=== PATIENT | female | born 1965 | race African-American/Black ===

== ENCOUNTER 2016-05-25 21:56 | Emergency (ER) | payer SELFPAY ==
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
[2016-05-25 22:16] VITALS: BP 151/98; PULSE 66; TEMP 997.9; BMI 29.1
== END 2016-05-25 22:48 | disposition home or self-care (01) ==
LOC: FER 21:56
DX: S16.1XXA Strain of muscle, fascia and tendon at neck level, initial encounter (principal); V49.40XA Driver injured in collision with unspecified motor vehicles in traffic accident, initial encounter; Y93.89 Activity, other specified; Y92.410 Unspecified street and highway as the place of occurrence of the external cause; I10 Essential (primary) hypertension
CPT/HCPCS: 99282-25

== ENCOUNTER 2017-12-30 17:10 | Emergency (ER) | payer BC ==
[2017-12-30 18:25] VITALS: BP 150/92; PULSE 87; TEMP 98.4; BMI 29.4
--- NOTE | 2017-12-30 19:19 | PDOC ---
History of Present Illness - General History Source: Patient Exam Limitations: No Limitations - History of Present Illness Initial Comments: 12/30/17 19:43 The patient is a 52 year old male with a past medical history of GOUT, hypertension, and asthma who presents to the emergency department for evaluation of left foot pain. The patient reports moderate left toe pain with associated redness since this morning. He reports waking up this morning with a soreness on the medial side of his left foot. Patient reports a history of gout , but notes it usually affects the entire left foot. The patient denies changes in diet, chest pain, shortness of breath, headache dizziness, f/c, nausea, vomiting, and any bowel/urinary symptoms. Allergies: Ibuprofen, NSAIDS Social History: No reported alcohol, cigarette, or drug use. Surgical History: Gastric sleeve. <Jayce Briscoe - Last Filed: 12/30/17 19:43> <Paulina Barragan - Last Filed: 12/31/17 00:58> - General Chief Complaint: Pain Stated Complaint: LEFT FOOT PAIN Time Seen by Provider: 12/30/17 19:18 Past History <Jayce Briscoe - Last Filed: 12/30/17 19:43> - Past Medical History Asthma: Yes COPD: No Diabetes: Yes HTN: Yes Other medical history: GOUT - Surgical History GI Surgery: Yes (SLEEVE) - Suicide/Smoking/Psychosocial Hx Smoking History: Never smoked Have you smoked in the past 12 months: No Hx Alcohol Use: No Drug/Substance Use Hx: No Substance Use Type: None <Paulina Barragan - Last Filed: 12/31/17 00:58> - Past Medical History Allergies/Adverse Reactions: Allergies Allergy/AdvReac Type Severity Reaction Status Date / Time ibuprofen [From Advil] Allergy Severe Swelling Verified 12/30/17 18:25 NSAIDS (Non-Steroidal Allergy Severe Swelling Verified 12/30/17 18:25 Anti-Inflamma Home Medications: Ambulatory Orders Allopurinol [Zyloprim -] 100 mg PO DAILY #30 tablet 12/30/17 Carvedilol [Coreg -] mg PO BID 12/30/17 Colchicine [Colcrys -] 0.6 mg PO DAILY #30 tablet 12/30/17 Hydralazine HCl 100 mg PO TID 12/30/17 Hydrochlorothiazide [Hctz -] 25 mg PO TID 12/30/17 Losartan Potassium [Cozaar -] 25 mg PO DAILY 12/30/17 Montelukast Sodium [Singulair] 10 mg PO HS 12/30/17 Review of Systems - Review of Systems Able to Perform ROS?: Yes Comments:: GENERAL/CONSTITUTIONAL: No fever or chills. No weakness. HEAD, EYES, EARS, NOSE AND THROAT: No change in vision. No ear pain or discharge. No sore throat. CARDIOVASCULAR: No chest pain or shortness of breath. RESPIRATORY: No cough, wheezing, or hemoptysis. GASTROINTESTINAL: No nausea, vomiting, diarrhea or constipation. GENITOURINARY: No dysuria, frequency, or change in urination. MUSCULOSKELETAL: (+)Left toe pain. (+)Left toe redness. No joint or muscle swelling or pain. No neck or back pain. SKIN: No rash NEUROLOGIC: No headache, vertigo, loss of consciousness, or change in strength/ sensation. ENDOCRINE: No increased thirst. No abnormal weight change. HEMATOLOGIC/LYMPHATIC: No anemia, easy bleeding, or history of blood clots. ALLERGIC/IMMUNOLOGIC: No hives or skin allergy. <RachnaJayce - Last Filed: 12/30/17 19:43> *Physical Exam - Vital Signs Last Vital Signs Temp Pulse Resp BP Pulse Ox 98.4 F 87 18 150/92 96 12/30/17 18:23 12/30/17 18:23 12/30/17 18:23 12/30/17 18:23 12/30/17 18:23 - Physical Exam Comments: GENERAL: Awake, alert, and fully oriented, in no acute distress HEAD: No signs of trauma EYES: PERRLA, EOMI, sclera anicteric, conjunctiva clear ENT: Auricles normal inspection, hearing grossly normal, nares patent, oropharynx clear without exudates. Moist mucosa NECK: Normal ROM, supple, no lymphadenopathy, JVD, or masses LUNGS: Breath sounds equal, clear to auscultation bilaterally. No wheezes, and no crackles HEART: Regular rate and rhythm, normal S1 and S2, no murmurs, rubs or gallops ABDOMEN: Soft, nontender, normoactive bowel sounds. No guarding, no rebound. No masses EXTREMITIES: (+)Left first MTP joint erythema and tenderness to touch with mild swelling. Normal range of motion, no edema. No clubbing or cyanosis. No cords, erythema, or tenderness NEUROLOGICAL: Cranial nerves II through XII grossly intact. Normal speech, normal gait SKIN: Warm, Dry, normal turgor, no rashes or lesions noted. <Jayce Briscoe - Last Filed: 12/30/17 19:43> - Vital Signs Last Vital Signs Temp Pulse Resp BP Pulse Ox 98.4 F 87 18 150/92 96 12/30/17 18:23 12/30/17 18:23 12/30/17 18:23 12/30/17 18:23 12/30/17 18:23 <Paulina Barragan - Last Filed: 12/31/17 00:58> ED Treatment Course - Medications Given in the ED: ED Medications Discontinued Medications Generic Name Dose Route Start Last Admin Trade Name Freq PRN Reason Stop Dose Admin Acetaminophen 1,000 mg 12/30/17 19:23 12/30/17 19:31 Tylenol - PO 12/30/17 19:24 1,000 mg ONCE ONE Administration Allopurinol 300 mg 12/30/17 19:23 12/30/17 19:31 Zyloprim - PO 12/30/17 19:24 300 mg ONCE ONE Administration Colchicine 1.2 mg 12/30/17 19:23 12/30/17 19:31 Colcrys - PO 12/30/17 19:24 1.2 mg ONCE ONE Administration <Jayce Briscoe - Last Filed: 12/30/17 19:43> Medical Decision Making - Medical Decision Making 12/31/17 00:57 Pt with gout/podagra; treat with tylenol (allergic to NSAIDS)_ allopurinol and colchicine <Paulina Barragan - Last Filed: 12/31/17 00:58> *DC/Admit/Observation/Transfer - Attestations Scribe Attestion: Documentation prepared by Jayce Briscoe, acting as center medical and lab director for Paulina Barragan MD. <Jayce Briscoe - Last Filed: 12/30/17 19:43> - Discharge Dispostion Decision to Admit order: No <Paulina Barragan - Last Filed: 12/31/17 00:58> Diagnosis at time of Disposition: Gout attack, Podagra - Discharge Dispostion Disposition: HOME Condition at time of disposition: Stable - Prescriptions Prescriptions: Allopurinol [Zyloprim -] 100 mg PO DAILY #30 tablet Colchicine [Colcrys -] 0.6 mg PO DAILY #30 tablet - Patient Instructions Printed Discharge Instructions: Uric Acid, DI for Gout, Higher Vitamin C Intake Associated With Lower Risk of Gout - Post Discharge Activity Forms/Work/School Notes: Back to Work
[2017-12-30] MEDS ORDERED: ALLOPURINOL 300 MG TABLET (FP) PO ONE (19:23)
[2017-12-30] MEDS ORDERED: ACETAMINOPHEN 500 MG TABLET (FP) PO ONE (19:23)
[2017-12-30] MEDS ORDERED: COLCHICINE 0.6 MG TABLET (FP) PO ONE (19:23)
[2017-12-30] MEDS ORDERED: COLCHICINE 0.6 MG TABLET (FP) ONE (19:24)
[2017-12-30] MEDS ORDERED: ACETAMINOPHEN 500 MG TABLET (FP) ONE (19:25)
== END 2017-12-30 19:34 | disposition home or self-care (01) ==
LOC: EDSEX 17:10 → FER 17:10
DX: M10.9 Gout, unspecified (principal); Z98.84 Bariatric surgery status; E11.9 Type 2 diabetes mellitus without complications; I10 Essential (primary) hypertension; J45.909 Unspecified asthma, uncomplicated
CPT/HCPCS: 99282-25

== ENCOUNTER 2018-07-05 23:50 | Emergency (ER) | payer BC ==
[2018-07-06 00:24] VITALS: BP 107/57; PULSE 83; TEMP 98.4; BMI 28.7
--- NOTE | 2018-07-06 00:31 | PDOC ---
History of Present Illness - General Chief Complaint: Diarrhea Stated Complaint: DIARRHEA Time Seen by Provider: 07/06/18 00:05 - History of Present Illness Initial Comments: 07/06/18 00:51 This 53-year-old man with a history of HTN/gout/asthma presents with a one-day history of diarrhea. Patient states that he ate eggs and sausage with strawberries for breakfast is morning. Soon after that, he had onset of loose, watery stool. No blood or mucus in the stool. Throughout the day, he had persistent diarrhea, especially after eating or drinking anything. There is been no nausea or vomiting, fever or chills. No known sick contacts. No recent travel. He has not eaten chicken/raw or rare beef/seafood (patient is ALLERGIC to shellfish). Patient was working throughout the day and limited his oral intake because of persistent loose stools. This evening, he began to feel lightheaded, especially with movement. Past History - Past Medical History Allergies/Adverse Reactions: Allergies Allergy/AdvReac Type Severity Reaction Status Date / Time ibuprofen [From Advil] Allergy Severe Swelling Verified 12/30/17 18:25 NSAIDS (Non-Steroidal Allergy Severe Swelling Verified 12/30/17 18:25 Anti-Inflamma Home Medications: Ambulatory Orders Allopurinol [Zyloprim -] 100 mg PO DAILY #30 tablet 12/30/17 Carvedilol [Coreg -] mg PO BID 12/30/17 Colchicine [Colcrys -] 0.6 mg PO DAILY #30 tablet 12/30/17 Hydralazine HCl 100 mg PO TID 12/30/17 Hydrochlorothiazide [Hctz -] 25 mg PO TID 12/30/17 Losartan Potassium [Cozaar -] 25 mg PO DAILY 12/30/17 Montelukast Sodium [Singulair] 10 mg PO HS 12/30/17 Asthma: Yes COPD: No Diabetes: Yes HTN: Yes - Surgical History GI Surgery: Yes (SLEEVE) - Suicide/Smoking/Psychosocial Hx Smoking History: Never smoked Have you smoked in the past 12 months: No Hx Alcohol Use: No Drug/Substance Use Hx: No Substance Use Type: None Review of Systems - Review of Systems Able to Perform ROS?: Yes Comments:: 12 point review of systems is negative except for what is noted in the history of present illness *Physical Exam - Vital Signs Last Vital Signs Temp Pulse Resp BP Pulse Ox 98.4 F 83 16 107/57 L 97 07/05/18 23:51 07/05/18 23:51 07/05/18 23:51 07/05/18 23:51 07/05/18 23:51 - Physical Exam Comments: GENERAL: Adult male, alert and oriented 3, in no acute distress HEAD: Normal with no signs of trauma. EYES: PERRLA, EOMI, sclera anicteric, conjunctiva clear. ENT: Ears normal, nares patent, oropharynx clear without exudates. Dry mucous membranes. NECK: Normal range of motion, supple without lymphadenopathy, JVD, or masses. LUNGS: Breath sounds equal, clear to auscultation bilaterally. No wheezes, and no crackles. HEART:Regular rate and rhythm, normal S1 and S2 without murmur, rub or gallop. ABDOMEN:.normal bowel sounds No guarding,tenderness or rebound.No masses No distention. EXTREMITIES: Normal range of motion, no edema. No clubbing or cyanosis. No erythema, or tenderness. NEUROLOGICAL: Cranial nerves II through XII grossly intact. Normal speech. No focal neurological deficits. MUSCULOSKELETAL: Back non-tender to palpation, no CVA tenderness SKIN: Warm, Dry, normal turgor, no rashes or lesions noted. Moderate Sedation - Procedure Monitoring Vital Signs: Procedure Monitoring Vital Signs Temperature 98.4 F 07/05/18 23:51 Pulse Rate 83 07/05/18 23:51 Respiratory Rate 16 07/05/18 23:51 Blood Pressure 107/57 L 07/05/18 23:51 O2 Sat by Pulse Oximetry (%) 97 07/05/18 23:51 Progress Note - Progress Note Progress Note: Patient received a liter of normal saline IV for his 1 day of multiple episodes of diarrhea. After IV fluid hydration, patient felt significantly better with less weakness/ lightheadedness. Patient was discharged with instructions to maintain a bland/ light diet for a few days and advance diet to stool thickening foods (such as rice/bananas, etc.) He should follow-up with his PMD, Dr Garcia, within 5 days. He should return to the ER if he has persistent diarrhea (especially bloody) or if he develops fever/worsening abdominal pain/vomiting *DC/Admit/Observation/Transfer Diagnosis at time of Disposition: Diarrhea Qualifiers: Diarrhea type: unspecified type Qualified Code(s): R19.7 - Diarrhea, unspecified - Discharge Dispostion Disposition: HOME Condition at time of disposition: Stable - Referrals Referrals: Austin Otoole MD [Primary Care Provider] - - Patient Instructions Printed Discharge Instructions: Diarrhea Additional Instructions: Eat bland, non-spicy/non-fat food and drink plenty of fluids Imodium/Kaopectate/Pepto-Bismol as needed for loose stools(take as directed) Return or see your doctor if you have fever/vomiting/bloody stools/increasing abdominal pain In any case, follow-up with your doctor within 5 days - Post Discharge Activity
[2018-07-06] MEDS ORDERED: SODIUM CHLORIDE 1,000 ML IV STA (00:42)
== END 2018-07-06 03:21 | disposition home or self-care (01) ==
LOC: FER 23:50
PROC: 3E0337Z Introduction of Electrolytic and Water Balance Substance into Peripheral Vein, Percutaneous Approach (ICD-10-PCS; principal; 2018-07-05)
DX: R19.7 Diarrhea, unspecified (principal)
CPT/HCPCS: 99282-25; J7030